=== PATIENT | female | born 1940 | race Caucasian/White ===

== ENCOUNTER 2017-08-19 17:40 | Inpatient (IN) | payer MEDICARE, OTHER ==
[2017-08-19 22:29] LABS: ADD MAN DIFF? NO
[2017-08-19 22:31] LABS: BASOPHIL # 0.1 10^3/ul (0.0-0.1); BASOPHILS % 0.9 % (0.0-2.0); EOSINOPHILS # 0.1 10^3/ul (0.0-0.5); EOSINOPHILS % 0.8 % (0.0-7.0); HEMATOCRIT 37.4 % (37.0-47.0); HEMOGLOBIN 11.9 g/dl (12.0-16.0); LYMPHOCYTES # 1.2 10^3/ul (0.8-2.9); LYMPHOCYTES % 15.2 % (15.0-51.0); MEAN CORPUSCULAR HGB CONC 31.8 g/dl (32.0-37.0); MEAN CORPUSCULAR VOLUME 81.8 fl (82.0-101.0); MEAN PLATELET VOLUME 12.8 fl (7.4-10.4); MONOCYTE # 0.6 10^3/ul (0.3-0.9); MONOCYTES % 7.2 % (0.0-11.0); NEUTROPHILS % 75.6 % (39.0-77.0); PLATELET COUNT 277 10^3/UL (140-415); RED BLOOD COUNT 4.57 10^6/ul (4.20-5.40); RED CELL DISTRIBUTION WIDTH 15.9 % (11.5-14.5)
[2017-08-19 22:31] LABS: WHITE BLOOD COUNT 7.9 10^3/ul (4.8-10.8)
[2017-08-19 22:52] LABS: ANION GAP 15 (8-16); BLOOD UREA NITROGEN 43 mg/dl (7-20); CALCIUM 8.8 mg/dl (8.4-10.2); CARBON DIOXIDE 34 mmol/L (21-31); CHLORIDE 93 mmol/L (97-110); CREATININE 1.61 mg/dl (0.44-1.00); GLUCOSE 53 mg/dl (70-220); POTASSIUM 4.6 mmol/L (3.5-5.1); SODIUM 137 mmol/L (135-144)
[2017-08-19 23:03] LABS: TROPONIN-I 0.032 ng/ml (0.00-0.12)
[2017-08-19 23:16] LABS: B-TYPE NATRIURETIC PEPTIDE 56300 PG/ML (0-450)
[2017-08-19] MEDS: FUROSEMIDE 40 MG INJ IV (23:39)
[2017-08-20] MEDS ORDERED: ONDANSETRON 4 MG INJ IV
[2017-08-20] MEDS ORDERED: ACETAMINOPHEN 325 MG TAB PO
[2017-08-20] MEDS: CEFTRIAXONE 1 GM/50 ML (PMX) 50 ML IVPB (00:33)
[2017-08-20] MEDS: METHYLPREDNISOLONE 125 MG INJ IV (00:33)
[2017-08-20] MEDS: AZITHROMYCIN 500MG/250 ML IVPB IV (01:31)
[2017-08-20] MEDS: ALBUTEROL 0.5% (NEB) 2.5 MG/0.5 ML AMP INH (01:56)
[2017-08-20] MEDS: IPRATROPIUM (NEB) 0.5 MG/2.5 ML AMP INH (01:56)
[2017-08-20] MEDS ORDERED: NACL 0.9% 3 ML SYG IV (14:30)
[2017-08-20] MEDS ORDERED: AZITHROMYCIN 250 MG in SOD CHLORIDE 0.9% 250 ML IVPB (14:30)
[2017-08-20] MEDS: FUROSEMIDE 40 MG INJ IV ×2 (15:15→23:00)
[2017-08-20] MEDS: HYDROCODONE/APAP (5/325) TAB PO (19:31)
[2017-08-20] MEDS: ATORVASTATIN 10 MG TAB PO (21:00)
[2017-08-20] MEDS: HEPARIN 5,000 UNIT/0.5 ML VIAL SC (23:00)
[2017-08-20] MEDS: AZITHROMYCIN 500MG/NS (PMX) 250 ML IV (23:00)
[2017-08-21 00:58] LABS: CREATINE KINASE 61 IU/L (23-200)
[2017-08-21 01:10] LABS: CK INDEX 3.4; CK-MB 2.06 ng/ml (0.0-2.4)
[2017-08-21 01:17] LABS: TROPONIN-I 0.496 ng/ml (0.00-0.12)
[2017-08-21 05:50] LABS: ADD MAN DIFF? NO
[2017-08-21 05:57] LABS: BASOPHILS % 0.4 % (0.0-2.0); EOSINOPHILS % 0.2 % (0.0-7.0); HEMATOCRIT 32.3 % (37.0-47.0); HEMOGLOBIN 10.2 g/dl (12.0-16.0); LYMPHOCYTES # 0.7 10^3/ul (0.8-2.9); LYMPHOCYTES % 11.8 % (15.0-51.0); MEAN CORPUSCULAR HEMOGLOBIN 25.6 pg (29.0-33.0); MEAN CORPUSCULAR HGB CONC 31.6 g/dl (32.0-37.0); MEAN PLATELET VOLUME 12.7 fl (7.4-10.4); MONOCYTE # 0.8 10^3/ul (0.3-0.9); MONOCYTES % 14.3 % (0.0-11.0); NEUTROPHILS % 73.1 % (39.0-77.0); PLATELET COUNT 233 10^3/UL (140-415); RED BLOOD COUNT 3.99 10^6/ul (4.20-5.40)
[2017-08-21 05:57] LABS: WHITE BLOOD COUNT 5.5 10^3/ul (4.8-10.8)
[2017-08-21] MEDS: HEPARIN 5,000 UNIT/0.5 ML VIAL SC ×2 (06:12→15:47)
[2017-08-21] MEDS: FUROSEMIDE 40 MG INJ IV ×2 (06:13→15:41)
[2017-08-21 06:22] LABS: ANION GAP 15 (8-16); BLOOD UREA NITROGEN 50 mg/dl (7-20); CALCIUM 8.8 mg/dl (8.4-10.2); CARBON DIOXIDE 31 mmol/L (21-31); CHLORIDE 95 mmol/L (97-110); CREATININE 1.79 mg/dl (0.44-1.00); GLUCOSE 185 mg/dl (70-220); PHOSPHORUS 5.3 mg/dl (2.5-4.9); POTASSIUM 5.1 mmol/L (3.5-5.1); SODIUM 136 mmol/L (135-144)
[2017-08-21 06:45] LABS: CHOL/HDL RATIO 3.4 RATIO; HDL CHOLESTEROL 35 mg/dl (33-92); LDL CHOLESTEROL,CALCULATED 67 mg/dl; TRIGLYCERIDES 87 mg/dl (0-149)
[2017-08-21 06:45] LABS: CHOLESTEROL 119 mg/dl (100-200)
[2017-08-21 07:05] LABS: CREATINE KINASE 61 IU/L (23-200)
[2017-08-21 07:18] LABS: CK INDEX 3.5; CK-MB 2.12 ng/ml (0.0-2.4)
[2017-08-21 07:24] LABS: TROPONIN-I 0.423 ng/ml (0.00-0.12)
[2017-08-21] MEDS: AMLODIPINE 2.5 MG TAB PO (09:00)
[2017-08-21] MEDS: LOSARTAN 50 MG TAB PO (09:00)
[2017-08-21] MEDS: CEFTRIAXONE 1 GM/50 ML (PMX) 50 ML IVPB (09:27)
[2017-08-21] MEDS: ISOSORBIDE MONONITRATE(SR)30 MG TAB PO (09:29)
[2017-08-21 13:20] LABS: CREATINE KINASE 55 IU/L (23-200)
[2017-08-21 13:31] LABS: CK INDEX 3.7; CK-MB 2.02 ng/ml (0.0-2.4)
[2017-08-21 13:33] LABS: TROPONIN-I 0.284 ng/ml (0.00-0.12)
[2017-08-21] MEDS: HYDROCODONE/APAP (5/325) TAB PO (20:16)
[2017-08-22] MEDS: HEPARIN 5,000 UNIT/0.5 ML VIAL SC ×4 (00:01→22:33)
[2017-08-22] MEDS: FUROSEMIDE 40 MG INJ IV ×2 (06:02)
[2017-08-22] MEDS: ISOSORBIDE MONONITRATE(SR)30 MG TAB PO (08:38)
[2017-08-22] MEDS: ACETAMINOPHEN 325 MG TAB PO (08:38)
[2017-08-22] MEDS: LOSARTAN 50 MG TAB PO (08:38)
[2017-08-22 09:19] LABS: ADD MAN DIFF? NO
[2017-08-22 09:27] LABS: WHITE BLOOD COUNT 7.3 10^3/ul (4.8-10.8)
[2017-08-22 09:27] LABS: BASOPHILS % 0.6 % (0.0-2.0); EOSINOPHILS # 0.1 10^3/ul (0.0-0.5); EOSINOPHILS % 1.7 % (0.0-7.0); HEMATOCRIT 32.9 % (37.0-47.0); HEMOGLOBIN 10.4 g/dl (12.0-16.0); LYMPHOCYTES # 0.9 10^3/ul (0.8-2.9); LYMPHOCYTES % 12.4 % (15.0-51.0); MEAN CORPUSCULAR HEMOGLOBIN 25.9 pg (29.0-33.0); MEAN CORPUSCULAR HGB CONC 31.6 g/dl (32.0-37.0); MEAN PLATELET VOLUME 12.5 fl (7.4-10.4); MONOCYTE # 0.6 10^3/ul (0.3-0.9); MONOCYTES % 8.8 % (0.0-11.0); NEUTROPHIL # 5.5 10^3/ul (1.6-7.5); NEUTROPHILS % 76.2 % (39.0-77.0); PLATELET COUNT 196 10^3/UL (140-415); RED BLOOD COUNT 4.01 10^6/ul (4.20-5.40); RED CELL DISTRIBUTION WIDTH 15.9 % (11.5-14.5)
[2017-08-22 09:45] LABS: CREATINE KINASE 55 IU/L (23-200)
[2017-08-22 09:46] LABS: ANION GAP 15 (8-16); BLOOD UREA NITROGEN 51 mg/dl (7-20); CALCIUM 8.6 mg/dl (8.4-10.2); CARBON DIOXIDE 33 mmol/L (21-31); CHLORIDE 95 mmol/L (97-110); CREATININE 1.71 mg/dl (0.44-1.00); GLUCOSE 141 mg/dl (70-220); PHOSPHORUS 3.9 mg/dl (2.5-4.9); POTASSIUM 3.9 mmol/L (3.5-5.1); SODIUM 139 mmol/L (135-144)
[2017-08-22] MEDS: CEFTRIAXONE 1 GM/50 ML (PMX) 50 ML IVPB (09:49)
[2017-08-22 09:57] LABS: CK INDEX 2.7; TROPONIN-I 0.168 ng/ml (0.00-0.12)
[2017-08-22] MEDS ORDERED: DEXTROSE 50% 50 ML SYRINGE IV ×2 (13:30)
[2017-08-22] MEDS ORDERED: GLUCOSE GEL 15 GRAM TUBE BUCCAL (13:30)
[2017-08-22] MEDS ORDERED: GLUCAGON 1 MG INJ IM (13:30)
[2017-08-22] MEDS ORDERED: GLUCOSE GEL 15 GRAM TUBE PO ×2 (13:30)
[2017-08-22] MEDS: BUMETANIDE 1 MG INJ IV ×2 (14:25→17:32)
[2017-08-22] MEDS: LINAGLIPTIN 5 MG TABLET PO (14:51)
[2017-08-22] MEDS: INSULIN ASPART [NOVOLOG] 3 ML PEN SC ×3 (17:32→20:24)
[2017-08-22] MEDS ORDERED: BUMETANIDE 1 MG INJ IV (18:00)
[2017-08-22] MEDS: INSULIN GLARGINE [LANtus] 3 ML PEN SC (20:27)
[2017-08-22] MEDS: ATORVASTATIN 10 MG TAB PO ×2 (20:29)
[2017-08-22 20:48] LABS: HEMOGLOBIN A1C 7.1 % (0-5.9)
[2017-08-23] MEDS: ACCU-CHEK XX ×2 (02:00→20:54)
[2017-08-23] MEDS: BUMETANIDE 1 MG INJ IV ×2 (05:27→17:08)
[2017-08-23] MEDS: HEPARIN 5,000 UNIT/0.5 ML VIAL SC ×3 (05:28→21:04)
[2017-08-23] MEDS: INSULIN ASPART [NOVOLOG] 3 ML PEN SC ×7 (08:00→20:37)
[2017-08-23] MEDS: LOSARTAN 50 MG TAB PO ×2 (08:30→20:36)
[2017-08-23] MEDS: LINAGLIPTIN 5 MG TABLET PO (08:30)
[2017-08-23] MEDS: ISOSORBIDE MONONITRATE(SR)30 MG TAB PO (08:30)
[2017-08-23 08:56] LABS: ADD MAN DIFF? NO
[2017-08-23 09:00] LABS: WHITE BLOOD COUNT 6.6 10^3/ul (4.8-10.8)
[2017-08-23 09:00] LABS: BASOPHILS % 0.6 % (0.0-2.0); EOSINOPHILS # 0.2 10^3/ul (0.0-0.5); EOSINOPHILS % 3.2 % (0.0-7.0); HEMATOCRIT 33.3 % (37.0-47.0); HEMOGLOBIN 10.4 g/dl (12.0-16.0); LYMPHOCYTES # 0.9 10^3/ul (0.8-2.9); MEAN CORPUSCULAR HEMOGLOBIN 25.4 pg (29.0-33.0); MEAN CORPUSCULAR HGB CONC 31.2 g/dl (32.0-37.0); MEAN CORPUSCULAR VOLUME 81.4 fl (82.0-101.0); MEAN PLATELET VOLUME 12.2 fl (7.4-10.4); MONOCYTE # 0.5 10^3/ul (0.3-0.9); MONOCYTES % 7.5 % (0.0-11.0); NEUTROPHIL # 4.9 10^3/ul (1.6-7.5); NEUTROPHILS % 74.5 % (39.0-77.0); PLATELET COUNT 202 10^3/UL (140-415); RED BLOOD COUNT 4.09 10^6/ul (4.20-5.40)
[2017-08-23 09:43] LABS: PHOSPHORUS 3.7 mg/dl (2.5-4.9)
[2017-08-23 09:57] LABS: ALANINE AMINOTRANSFERASE 26 IU/L (13-69); ALBUMIN 3.1 g/dl (3.3-4.9); ALKALINE PHOSPHATASE 84 IU/L (42-121); ANION GAP 13 (8-16); ASPARTATE AMINO TRANSFERASE 22 IU/L (15-46); BILIRUBIN,INDIRECT 0.3 mg/dl (0-1.1); BILIRUBIN,TOTAL 0.3 mg/dl (0.2-1.3); BLOOD UREA NITROGEN 46 mg/dl (7-20); CALCIUM 8.3 mg/dl (8.4-10.2); CARBON DIOXIDE 36 mmol/L (21-31); CHLORIDE 96 mmol/L (97-110); CREATININE 1.67 mg/dl (0.44-1.00); GLUCOSE 92 mg/dl (70-220); POTASSIUM 3.9 mmol/L (3.5-5.1); SODIUM 141 mmol/L (135-144); TOTAL PROTEIN 6.2 g/dl (6.1-8.1)
[2017-08-23 18:11] LABS: AADO2 Arterial 67.3 mmHg (7.0-24.0); Allen Test ACCEPTAB; Arterial Base Excess 10.7 mmol/L (-3.0-3); Arterial Blood Gas Oxygen Sat 87.1 mmHG (95.0-100.0); Arterial COHb 0.2 % (0.0-3.0); Arterial Fraction of Oxyhgb 86.7 % (93.0-99.0); Arterial HCO3 37.2 mmol/L (22.0-26.0); Arterial MetHb 0.3 % (0.0-1.5); Arterial Total Hemglobin 11.4 g/dl (12.0-18.0); Arterial pCO2 59.6 mmhg (35-45); MODE NASAL CANNULA; Site Left Radial
[2017-08-23] MEDS: ACETAZOLAMIDE 250 MG TAB PO (20:35)
[2017-08-23] MEDS: DOCUSATE SODIUM 100 MG CAP PO (20:35)
[2017-08-23] MEDS: ATORVASTATIN 10 MG TAB PO (20:35)
[2017-08-23] MEDS: ONDANSETRON 4 MG INJ IV (20:38)
[2017-08-23] MEDS: INSULIN GLARGINE [LANtus] 3 ML PEN SC (20:44)
[2017-08-23 23:15] LABS: ADD UMIC YES; UR ASCORBIC ACID NEGATIVE (NEGATIVE); UR BILIRUBIN (Dip) NEGATIVE (NEGATIVE); UR BLOOD (Dip) NEGATIVE (NEGATIVE); UR CLARITY CLEAR (CLEAR); UR COLOR STRAW (YELLOW); UR GLUCOSE (Dip) NEGATIVE (NEGATIVE); UR KETONES (Dip) NEGATIVE (NEGATIVE); UR LEUKOCYTE ESTERASE (Dip) 2+ Leu/ul (NEGATIVE); UR NITRITE (Dip) NEGATIVE (NEGATIVE); UR RBC 3 /HPF (0-5); UR SPECIFIC GRAVITY (Dip) 1.006 (1.003-1.030); UR SQUAMOUS EPITHELIAL CELL FEW /HPF (FEW); UR TOTAL PROTEIN (Dip) NEGATIVE (NEGATIVE); UR UROBILINOGEN (Dip) NEGATIVE (NEGATIVE); UR WBC 9 /HPF (0-5)
[2017-08-24] MEDS: BUMETANIDE 1 MG INJ IV ×2 (06:33→17:44)
[2017-08-24] MEDS: HEPARIN 5,000 UNIT/0.5 ML VIAL SC (06:40)
[2017-08-24] MEDS: LOSARTAN 50 MG TAB PO ×2 (07:01→20:43)
[2017-08-24] MEDS: INSULIN ASPART [NOVOLOG] 3 ML PEN SC ×7 (08:00→20:44)
[2017-08-24] MEDS: ACETAZOLAMIDE 250 MG TAB PO ×2 (08:03→20:28)
[2017-08-24] MEDS: LINAGLIPTIN 5 MG TABLET PO (08:03)
[2017-08-24] MEDS: ISOSORBIDE MONONITRATE(SR)30 MG TAB PO (08:04)
[2017-08-24] MEDS: HYDROCODONE/APAP (5/325) TAB PO (08:05)
[2017-08-24 08:45] LABS: ADD MAN DIFF? NO
[2017-08-24 08:49] LABS: WHITE BLOOD COUNT 6.3 10^3/ul (4.8-10.8)
[2017-08-24 08:49] LABS: BASOPHIL # 0.1 10^3/ul (0.0-0.1); BASOPHILS % 1.1 % (0.0-2.0); EOSINOPHILS # 0.2 10^3/ul (0.0-0.5); EOSINOPHILS % 2.5 % (0.0-7.0); HEMOGLOBIN 10.5 g/dl (12.0-16.0); LYMPHOCYTES # 1.1 10^3/ul (0.8-2.9); MEAN CORPUSCULAR HEMOGLOBIN 25.5 pg (29.0-33.0); MEAN CORPUSCULAR HGB CONC 30.9 g/dl (32.0-37.0); MEAN CORPUSCULAR VOLUME 82.5 fl (82.0-101.0); MEAN PLATELET VOLUME 12.7 fl (7.4-10.4); MONOCYTE # 0.5 10^3/ul (0.3-0.9); MONOCYTES % 8.1 % (0.0-11.0); NEUTROPHIL # 4.5 10^3/ul (1.6-7.5); PLATELET COUNT 141 10^3/UL (140-415); RED BLOOD COUNT 4.12 10^6/ul (4.20-5.40); RED CELL DISTRIBUTION WIDTH 16.3 % (11.5-14.5)
[2017-08-24 09:20] LABS: ANION GAP 14 (8-16); BLOOD UREA NITROGEN 41 mg/dl (7-20); CALCIUM 8.4 mg/dl (8.4-10.2); CARBON DIOXIDE 34 mmol/L (21-31); CHLORIDE 98 mmol/L (97-110); GLUCOSE 67 mg/dl (70-220); POTASSIUM 3.9 mmol/L (3.5-5.1); SODIUM 142 mmol/L (135-144)
[2017-08-24 09:22] LABS: PHOSPHORUS 3.5 mg/dl (2.5-4.9)
[2017-08-24 09:22] LABS: MAGNESIUM 1.9 mg/dl (1.7-2.5)
[2017-08-24 11:05] LABS: INR 1.16; PT RATIO 1.2
[2017-08-24 11:06] LABS: PARTIAL THROMBOPLASTIN TIME 47.6 Sec (25.0-35.0)
[2017-08-24] MEDS: hydrALAzine 20 MG INJ IV (16:13)
[2017-08-24] MEDS: ATORVASTATIN 10 MG TAB PO (20:28)
[2017-08-24] MEDS: INSULIN GLARGINE [LANtus] 3 ML PEN SC (20:37)
[2017-08-24] MEDS: ACCU-CHEK XX (20:44)
[2017-08-25] MEDS: BUMETANIDE 1 MG INJ IV ×2 (06:54→12:11)
[2017-08-25 07:38] LABS: ADD MAN DIFF? NO
[2017-08-25 07:56] LABS: ABNORMAL IP MESSAGE 1; BASOPHIL # 0.1 10^3/ul (0.0-0.1); BASOPHILS % 0.8 % (0.0-2.0); EOSINOPHILS # 0.2 10^3/ul (0.0-0.5); EOSINOPHILS % 2.6 % (0.0-7.0); HEMATOCRIT 32.5 % (37.0-47.0); HEMOGLOBIN 10.2 g/dl (12.0-16.0); LYMPHOCYTES # 0.8 10^3/ul (0.8-2.9); LYMPHOCYTES % 13.5 % (15.0-51.0); MEAN CORPUSCULAR HEMOGLOBIN 25.9 pg (29.0-33.0); MEAN CORPUSCULAR HGB CONC 31.4 g/dl (32.0-37.0); MEAN CORPUSCULAR VOLUME 82.5 fl (82.0-101.0); MEAN PLATELET VOLUME 13.3 fl (7.4-10.4); MONOCYTE # 0.5 10^3/ul (0.3-0.9); MONOCYTES % 8.5 % (0.0-11.0); NEUTROPHIL # 4.6 10^3/ul (1.6-7.5); NEUTROPHILS % 74.3 % (39.0-77.0); PLATELET COUNT 216 10^3/UL (140-415); RED BLOOD COUNT 3.94 10^6/ul (4.20-5.40); RED CELL DISTRIBUTION WIDTH 16.2 % (11.5-14.5)
[2017-08-25 07:56] LABS: WHITE BLOOD COUNT 6.2 10^3/ul (4.8-10.8)
[2017-08-25 07:57] LABS: PHOSPHORUS 3.8 mg/dl (2.5-4.9)
[2017-08-25 07:57] LABS: MAGNESIUM 1.9 mg/dl (1.7-2.5)
[2017-08-25 07:58] LABS: POSITIVE DIFF @See below
[2017-08-25 07:59] LABS: ANION GAP 16 (8-16); BLOOD UREA NITROGEN 37 mg/dl (7-20); CALCIUM 8.4 mg/dl (8.4-10.2); CARBON DIOXIDE 35 mmol/L (21-31); CHLORIDE 98 mmol/L (97-110); CREATININE 1.81 mg/dl (0.44-1.00); GLUCOSE 75 mg/dl (70-220); POTASSIUM 3.5 mmol/L (3.5-5.1); SODIUM 145 mmol/L (135-144)
[2017-08-25] MEDS: INSULIN ASPART [NOVOLOG] 3 ML PEN SC ×4 (08:00→12:14)
[2017-08-25] MEDS: LINAGLIPTIN 5 MG TABLET PO (08:45)
[2017-08-25] MEDS: ISOSORBIDE MONONITRATE(SR)30 MG TAB PO (08:45)
[2017-08-25] MEDS: LOSARTAN 50 MG TAB PO (08:45)
[2017-08-25] MEDS: ACETAZOLAMIDE 250 MG TAB PO (08:45)
[2017-08-25] MEDS: LIDOCAINE 1% (MPF) 5 ML VIAL (10:23)
[2017-08-25] MEDS ORDERED: L ACIDOPHIL/B LACTIS/B LONGUM CAPSULE PO (16:30)
== END 2017-08-25 17:15 | disposition home health service (06) | DRG 291 ==
LOC: E/R 17:40 → MS4 23:47
PROC: 4A033R1 Measurement of Arterial Saturation, Peripheral, Percutaneous Approach (ICD-10-PCS; 2017-08-23)
PROC: 0W9B3ZZ Drainage of Left Pleural Cavity, Percutaneous Approach (ICD-10-PCS; principal; 2017-08-25)
DX: I13.0 Hypertensive heart and chronic kidney disease with heart failure and stage 1 through stage 4 chronic kidney disease, or unspecified chronic kidney disease (principal); I50.23 Acute on chronic systolic (congestive) heart failure; J18.9 Pneumonia, unspecified organism; E87.3 Alkalosis; E87.0 Hyperosmolality and hypernatremia; N18.3 Chronic kidney disease, stage 3 (moderate); F03.90 Unspecified dementia, unspecified severity, without behavioral disturbance, psychotic disturbance, mood disturbance, and anxiety; E11.22 Type 2 diabetes mellitus with diabetic chronic kidney disease; I25.5 Ischemic cardiomyopathy; J06.9 Acute upper respiratory infection, unspecified; I44.7 Left bundle-branch block, unspecified; D64.9 Anemia, unspecified; E78.00 Pure hypercholesterolemia, unspecified; E11.40 Type 2 diabetes mellitus with diabetic neuropathy, unspecified; Z95.1 Presence of aortocoronary bypass graft; Z79.4 Long term (current) use of insulin; Z82.49 Family history of ischemic heart disease and other diseases of the circulatory system; Z95.810 Presence of automatic (implantable) cardiac defibrillator
CPT/HCPCS: 36415; 36600; 71045; 76942; 80048; 80053; 80061; 81001; 82550; 82553; 82803; 82962; 83036; 83735; 83880; 84100; 84484; 85025; 85610; 85730; 93005; 93306; 96372; 96374; 96375; 96376; 97162; 99285-25

== ENCOUNTER 2017-12-02 16:42 | Inpatient (IN) | payer MEDICARE, OTHER ==
[2017-12-02] MEDS ORDERED: DEXTROSE 50% 50 ML SYRINGE (16:53)
[2017-12-02 17:25] LABS: ADD MAN DIFF? NO
[2017-12-02 17:28] LABS: WHITE BLOOD COUNT 13.6 10^3/ul (4.8-10.8)
[2017-12-02 17:28] LABS: BASOPHILS % 0.3 % (0.0-2.0); EOSINOPHILS # 0.1 10^3/ul (0.0-0.5); EOSINOPHILS % 0.4 % (0.0-7.0); HEMATOCRIT 31.9 % (37.0-47.0); LYMPHOCYTES # 0.7 10^3/ul (0.8-2.9); LYMPHOCYTES % 5.2 % (15.0-51.0); MEAN CORPUSCULAR HEMOGLOBIN 28.2 pg (29.0-33.0); MEAN CORPUSCULAR HGB CONC 31.3 g/dl (32.0-37.0); MEAN CORPUSCULAR VOLUME 90.1 fl (82.0-101.0); MEAN PLATELET VOLUME 12.6 fl (7.4-10.4); MONOCYTE # 0.6 10^3/ul (0.3-0.9); MONOCYTES % 4.6 % (0.0-11.0); NEUTROPHIL # 12.1 10^3/ul (1.6-7.5); NEUTROPHILS % 89.1 % (39.0-77.0); PLATELET COUNT 206 10^3/UL (140-415); RED BLOOD COUNT 3.54 10^6/ul (4.20-5.40); RED CELL DISTRIBUTION WIDTH 18.4 % (11.5-14.5)
[2017-12-02] MEDS ORDERED: LORAZEPAM 2 MG INJ (17:33)
[2017-12-02 17:44] LABS: INR 1.04; PROTIME 13.7 Sec (11.9-14.9); PT RATIO 1.1
[2017-12-02] MEDS: DEXTROSE 50% 50 ML SYRINGE IV ×2 (17:45→19:13)
[2017-12-02] MEDS: LORAZEPAM 2 MG INJ IV (17:45)
[2017-12-02 17:47] LABS: ALANINE AMINOTRANSFERASE 23 IU/L (13-69); ALBUMIN 3.3 g/dl (3.3-4.9); ALBUMIN/GLOBULIN RATIO 0.89; ALKALINE PHOSPHATASE 98 IU/L (42-121); ANION GAP 11 (8-16); ASPARTATE AMINO TRANSFERASE 24 IU/L (15-46); BILIRUBIN,INDIRECT 0.5 mg/dl (0-1.1); BILIRUBIN,TOTAL 0.5 mg/dl (0.2-1.3); BLOOD UREA NITROGEN 61 mg/dl (7-20); CALCIUM 8.7 mg/dl (8.4-10.2); CARBON DIOXIDE 33 mmol/L (21-31); CHLORIDE 102 mmol/L (97-110); GLUCOSE 150 mg/dl (70-220); POTASSIUM 3.8 mmol/L (3.5-5.1); SODIUM 142 mmol/L (135-144)
[2017-12-02 17:52] LABS: ACETAMINOPHEN < 10.0 ug/ml (10.0-30.0); ETHANOL < 10.0 mg/dl; SALICYLATE < 1.0 mg/dl (5.0-30.0)
[2017-12-02 18:00] LABS: TROPONIN-I < 0.012 ng/ml (0.000-0.120)
[2017-12-02] MEDS: LEVETIRACETAM 1500 MG (PMX) 100 ML IVPB (18:00)
[2017-12-02] MEDS: ETOMIDATE 20 MG INJ IV (18:26)
[2017-12-02] MEDS: PROPOFOL 100 ML IV ×2 (18:26→23:57)
[2017-12-02] MEDS: IOHEXOL 100 ML (18:42)
[2017-12-02] MEDS: CEFEPIME 2GM/50 ML (PMX) 50 ML IVPB (18:43)
[2017-12-02] MEDS: VANCOMYCIN 1 GM (PMX) 250 ML IVPB (19:00)
[2017-12-02 19:09] LABS: ADD UMIC NO; UR ASCORBIC ACID NEGATIVE (NEGATIVE); UR BILIRUBIN (Dip) NEGATIVE (NEGATIVE); UR BLOOD (Dip) NEGATIVE (NEGATIVE); UR CLARITY CLEAR (CLEAR); UR COLOR STRAW (YELLOW); UR GLUCOSE (Dip) NEGATIVE (NEGATIVE); UR KETONES (Dip) NEGATIVE (NEGATIVE); UR LEUKOCYTE ESTERASE (Dip) NEGATIVE Leu/ul (NEGATIVE); UR NITRITE (Dip) NEGATIVE (NEGATIVE); UR SPECIFIC GRAVITY (Dip) 1.006 (1.003-1.030); UR TOTAL PROTEIN (Dip) NEGATIVE (NEGATIVE); UR UROBILINOGEN (Dip) NEGATIVE (NEGATIVE)
[2017-12-02 19:22] LABS: AMPHETAMINE/METHAMPHETAMINE Negative (NEGATIVE); BARBITURATES Negative (NEGATIVE); BENZODIAZEPINES Negative (NEGATIVE); CANNABINOIDS Negative (NEGATIVE); COCAINE Negative (NEGATIVE); OPIATES Negative (NEGATIVE)
[2017-12-02] MEDS: SOD CHLORIDE 0.9% 100 ML (20:15)
[2017-12-02 20:33] LABS: LACTIC ACID 1.8 mmol/L (0.5-2.0)
[2017-12-02] MEDS ORDERED: SOD CHLORIDE 0.9% 1,000 ML IV (21:10)
[2017-12-02] MEDS ORDERED: ONDANSETRON 4 MG INJ IV (21:30)
[2017-12-02] MEDS ORDERED: ACETAMINOPHEN 650MG/20.3ML CUP PO (21:30)
[2017-12-02] MEDS ORDERED: ALBUTEROL HFA 8 GM INHALER INH (21:30)
[2017-12-02] MEDS ORDERED: LORAZEPAM 2 MG INJ IV (21:30)
[2017-12-02] MEDS ORDERED: MIDAZOLAM (DRIP) 50 mg/50 mL 50 ML IV (21:30)
[2017-12-02] MEDS ORDERED: NITROGLYCERIN (SL) 0.4 MG TAB SL (21:30)
[2017-12-02] MEDS ORDERED: BISACODYL 10 MG SUPP PR (21:30)
[2017-12-02] MEDS: ATORVASTATIN 10 MG TAB PO (21:30)
[2017-12-02] MEDS ORDERED: MAGNESIUM HYDROXIDE 30ML CUP PO (21:30)
[2017-12-02] MEDS ORDERED: IPRATROPIUM (HFA) 12.9 GM INHALER INH (21:30)
[2017-12-02 22:28] LABS: LACTIC ACID 1.4 mmol/L (0.5-2.0)
[2017-12-02 22:46] LABS: FREE T4 (FREE THYROXINE) 2.17 ng/dl (0.78-2.44)
[2017-12-02 22:59] LABS: THYROID STIMULATING HORMONE 0.887 MIU/L (0.465-4.680)
[2017-12-02 23:34] LABS: AADO2 Arterial 100.3 mmHg (7.0-24.0); Arterial Base Excess 5.5 mmol/L (-3.0-3); Arterial Blood Gas Oxygen Sat 99.7 mmHG (95.0-100.0); Arterial COHb 0.3 % (0.0-3.0); Arterial Fraction of Oxyhgb 99.1 % (93.0-99.0); Arterial HCO3 28.9 mmol/L (22.0-26.0); Arterial MetHb 0.3 % (0.0-1.5); Arterial Total Hemglobin 11.5 g/dl (12.0-18.0); Arterial pCO2 37.6 mmhg (35-45); MODE VENT - AC; Site Right Brachial
[2017-12-02] MEDS: DEXTROSE 5%-0.9% NACL 1,000 ML IV (23:45)
[2017-12-03 00:27] LABS: LACTIC ACID 1.5 mmol/L (0.5-2.0)
[2017-12-03] MEDS: PIPER-TAZO 2.25 GM (PMX) 50 ML IVPB ×4 (00:50→22:13)
[2017-12-03] MEDS ORDERED: GLUCOSE GEL 15 GRAM TUBE BUCCAL (01:00)
[2017-12-03] MEDS ORDERED: GLUCOSE GEL 15 GRAM TUBE PO ×2 (01:00)
[2017-12-03] MEDS: INSULIN ASPART [NOVOLOG] 3 ML PEN SC ×6 (01:00→21:17)
[2017-12-03] MEDS ORDERED: GLUCAGON 1 MG INJ IM (01:00)
[2017-12-03] MEDS ORDERED: DEXTROSE 50% 50 ML SYRINGE IV ×2 (01:00)
[2017-12-03] MEDS: ACCU-CHEK XX ×6 (01:05→08:51)
[2017-12-03] MEDS: PROPOFOL 100 ML IV ×4 (01:50→21:48)
[2017-12-03 05:12] LABS: ADD MAN DIFF? NO
[2017-12-03 05:14] LABS: BASOPHILS % 0.3 % (0.0-2.0); EOSINOPHILS % 0.1 % (0.0-7.0); HEMATOCRIT 31.2 % (37.0-47.0); HEMOGLOBIN 9.8 g/dl (12.0-16.0); LYMPHOCYTES % 9.1 % (15.0-51.0); MEAN CORPUSCULAR HEMOGLOBIN 27.6 pg (29.0-33.0); MEAN CORPUSCULAR HGB CONC 31.4 g/dl (32.0-37.0); MEAN CORPUSCULAR VOLUME 87.9 fl (82.0-101.0); MEAN PLATELET VOLUME 12.6 fl (7.4-10.4); MONOCYTE # 0.8 10^3/ul (0.3-0.9); MONOCYTES % 7.2 % (0.0-11.0); NEUTROPHIL # 9.2 10^3/ul (1.6-7.5); PLATELET COUNT 194 10^3/UL (140-415); RED BLOOD COUNT 3.55 10^6/ul (4.20-5.40); RED CELL DISTRIBUTION WIDTH 18.2 % (11.5-14.5)
[2017-12-03 05:37] LABS: ALANINE AMINOTRANSFERASE 21 IU/L (13-69); ALKALINE PHOSPHATASE 98 IU/L (42-121); ANION GAP 15 (8-16); ASPARTATE AMINO TRANSFERASE 24 IU/L (15-46); BILIRUBIN,INDIRECT 0.9 mg/dl (0-1.1); BILIRUBIN,TOTAL 0.9 mg/dl (0.2-1.3); BLOOD UREA NITROGEN 59 mg/dl (7-20); CALCIUM 8.5 mg/dl (8.4-10.2); CARBON DIOXIDE 28 mmol/L (21-31); CHLORIDE 103 mmol/L (97-110); CREATININE 1.88 mg/dl (0.44-1.00); GLUCOSE 86 mg/dl (70-220); POTASSIUM 3.5 mmol/L (3.5-5.1); SODIUM 142 mmol/L (135-144); TOTAL PROTEIN 6.3 g/dl (6.1-8.1)
[2017-12-03 05:39] LABS: PHOSPHORUS 4.2 mg/dl (2.5-4.9)
[2017-12-03 05:39] LABS: MAGNESIUM 1.9 mg/dl (1.7-2.5)
[2017-12-03 05:50] LABS: HEMOGLOBIN A1C 6.6 % (0-5.9)
[2017-12-03 08:34] LABS: Arterial Base Excess 7.1 mmol/L (-3.0-3); Arterial Blood Gas Oxygen Sat 98.5 mmHG (95.0-100.0); Arterial COHb 0.3 % (0.0-3.0); Arterial HCO3 30.1 mmol/L (22.0-26.0); Arterial MetHb 0.2 % (0.0-1.5); Arterial pCO2 36.9 mmhg (35-45); MODE VENT - AC; Site Right Brachial
[2017-12-03] MEDS: FAMOTIDINE 20 MG INJ IV (08:59)
[2017-12-03] MEDS: LEVETIRACETAM 1000 MG (PMX) 100 ML IVPB ×2 (08:59→21:13)
[2017-12-03] MEDS: HEPARIN 5,000 UNIT/0.5 ML VIAL SC ×2 (09:53→21:18)
[2017-12-03] MEDS: POTASSIUM CHLORIDE 20 MEQ POWDER FOR ORAL SOLN NGT (11:16)
[2017-12-03] MEDS: DEXTROSE 5%-0.9% NACL 1,000 ML IV (14:11)
[2017-12-03 18:26] LABS: TROPONIN-I 0.036 ng/ml (0.000-0.120)
[2017-12-03] MEDS: ATORVASTATIN 10 MG TAB PO (21:13)
[2017-12-04] MEDS: DEXTROSE 5%-0.9% NACL 1,000 ML IV ×3 (00:30→20:57)
[2017-12-04] MEDS: INSULIN ASPART [NOVOLOG] 3 ML PEN SC ×6 (01:00→20:51)
[2017-12-04] MEDS: ACCU-CHEK XX (01:22)
[2017-12-04 01:45] LABS: TROPONIN-I 0.041 ng/ml (0.000-0.120)
[2017-12-04] MEDS: PIPER-TAZO 2.25 GM (PMX) 50 ML IVPB ×3 (05:31→22:18)
[2017-12-04 05:42] LABS: ADD MAN DIFF? NO
[2017-12-04 05:47] LABS: WHITE BLOOD COUNT 12.1 10^3/ul (4.8-10.8)
[2017-12-04 05:47] LABS: BASOPHIL # 0.1 10^3/ul (0.0-0.1); BASOPHILS % 0.4 % (0.0-2.0); EOSINOPHILS % 0.3 % (0.0-7.0); HEMATOCRIT 31.7 % (37.0-47.0); HEMOGLOBIN 10.1 g/dl (12.0-16.0); LYMPHOCYTES % 8.5 % (15.0-51.0); MEAN CORPUSCULAR HEMOGLOBIN 28.1 pg (29.0-33.0); MEAN CORPUSCULAR HGB CONC 31.9 g/dl (32.0-37.0); MEAN CORPUSCULAR VOLUME 88.1 fl (82.0-101.0); MEAN PLATELET VOLUME 12.6 fl (7.4-10.4); MONOCYTES % 8.6 % (0.0-11.0); NEUTROPHIL # 9.9 10^3/ul (1.6-7.5); NEUTROPHILS % 81.8 % (39.0-77.0); PLATELET COUNT 180 10^3/UL (140-415); RED CELL DISTRIBUTION WIDTH 18.9 % (11.5-14.5)
[2017-12-04 06:16] LABS: ANION GAP 12 (8-16); BLOOD UREA NITROGEN 53 mg/dl (7-20); CARBON DIOXIDE 28 mmol/L (21-31); CHLORIDE 106 mmol/L (97-110); CREATININE 2.21 mg/dl (0.44-1.00); GLUCOSE 163 mg/dl (70-220); POTASSIUM 3.2 mmol/L (3.5-5.1); SODIUM 143 mmol/L (135-144)
[2017-12-04 06:20] LABS: CHOL/HDL RATIO 2.7 RATIO; HDL CHOLESTEROL 45 mg/dl (33-92); LDL CHOLESTEROL,CALCULATED 56 mg/dl; TRIGLYCERIDES 108 mg/dl (0-149)
[2017-12-04 06:20] LABS: CHOLESTEROL 123 mg/dl (100-200)
[2017-12-04 06:23] LABS: TROPONIN-I 0.044 ng/ml (0.000-0.120)
[2017-12-04 07:40] LABS: PHOSPHORUS 4.7 mg/dl (2.5-4.9)
[2017-12-04 07:40] LABS: MAGNESIUM 1.9 mg/dl (1.7-2.5)
[2017-12-04] MEDS: DOCUSATE SODIUM 100 MG CAP PO (08:17)
[2017-12-04] MEDS: FAMOTIDINE 20 MG INJ IV (08:17)
[2017-12-04] MEDS: POTASSIUM CHLORIDE 20 MEQ POWDER FOR ORAL SOLN NGT (08:17)
[2017-12-04] MEDS: ASPIRIN (EC) 81 MG TAB PO (08:18)
[2017-12-04] MEDS: LEVETIRACETAM 1000 MG (PMX) 100 ML IVPB ×2 (08:18→20:41)
[2017-12-04] MEDS: HEPARIN 5,000 UNIT/0.5 ML VIAL SC ×2 (08:30→20:44)
[2017-12-04] MEDS: FUROSEMIDE 20 MG INJ IV (12:05)
[2017-12-04] MEDS: ATORVASTATIN 10 MG TAB PO (20:41)
[2017-12-05] MEDS: INSULIN ASPART [NOVOLOG] 3 ML PEN SC ×6 (01:00→20:21)
[2017-12-05] MEDS: ACCU-CHEK XX (01:11)
[2017-12-05 05:21] LABS: ADD MAN DIFF? NO
[2017-12-05 05:32] LABS: WHITE BLOOD COUNT 12.5 10^3/ul (4.8-10.8)
[2017-12-05 05:32] LABS: ABNORMAL IP MESSAGE 1; BASOPHILS % 0.3 % (0.0-2.0); EOSINOPHILS % 0.2 % (0.0-7.0); HEMATOCRIT 30.3 % (37.0-47.0); HEMOGLOBIN 9.7 g/dl (12.0-16.0); LYMPHOCYTES # 0.9 10^3/ul (0.8-2.9); LYMPHOCYTES % 7.5 % (15.0-51.0); MEAN CORPUSCULAR HEMOGLOBIN 28.3 pg (29.0-33.0); MEAN CORPUSCULAR VOLUME 88.3 fl (82.0-101.0); MEAN PLATELET VOLUME 13.1 fl (7.4-10.4); MONOCYTE # 0.8 10^3/ul (0.3-0.9); MONOCYTES % 6.4 % (0.0-11.0); NEUTROPHIL # 10.7 10^3/ul (1.6-7.5); NEUTROPHILS % 85.3 % (39.0-77.0); PLATELET COUNT 169 10^3/UL (140-415); RED BLOOD COUNT 3.43 10^6/ul (4.20-5.40); RED CELL DISTRIBUTION WIDTH 18.6 % (11.5-14.5)
[2017-12-05 05:45] LABS: POSITIVE DIFF @See below
[2017-12-05 06:16] LABS: ANION GAP 13 (8-16); BLOOD UREA NITROGEN 46 mg/dl (7-20); CARBON DIOXIDE 31 mmol/L (21-31); CHLORIDE 104 mmol/L (97-110); CREATININE 2.47 mg/dl (0.44-1.00); GLUCOSE 148 mg/dl (70-220); MAGNESIUM 1.9 mg/dl (1.7-2.5); PHOSPHORUS 4.5 mg/dl (2.5-4.9); SODIUM 145 mmol/L (135-144)
[2017-12-05] MEDS: PIPER-TAZO 2.25 GM (PMX) 50 ML IVPB ×3 (06:17→23:11)
[2017-12-05 06:53] LABS: POTASSIUM 2.9 mmol/L (3.5-5.1)
[2017-12-05] MEDS: DEXTROSE 5%-0.9% NACL 1,000 ML IV (08:12)
[2017-12-05] MEDS: FUROSEMIDE 20 MG INJ IV (08:18)
[2017-12-05] MEDS: POTASSIUM CHLORIDE 20 MEQ POWDER FOR ORAL SOLN NGT ×2 (08:18→09:40)
[2017-12-05] MEDS: FAMOTIDINE 20 MG INJ IV (08:22)
[2017-12-05] MEDS: ASPIRIN (EC) 81 MG TAB PO (08:23)
[2017-12-05] MEDS: HEPARIN 5,000 UNIT/0.5 ML VIAL SC ×2 (08:26→20:15)
[2017-12-05 08:30] LABS: AADO2 Arterial 58.5 mmHg (7.0-24.0); Allen Test ACCEPTAB; Arterial Base Excess 3.6 mmol/L (-3.0-3); Arterial Blood Gas Oxygen Sat 98.1 mmHG (95.0-100.0); Arterial COHb 0.4 % (0.0-3.0); Arterial Fraction of Oxyhgb 97.5 % (93.0-99.0); Arterial HCO3 27.4 mmol/L (22.0-26.0); Arterial MetHb 0.2 % (0.0-1.5); Arterial Total Hemglobin 11.3 g/dl (12.0-18.0); Arterial pCO2 38.4 mmhg (35-45); MODE VENT - AC; Site Right Radial
[2017-12-05] MEDS: LEVETIRACETAM 1000 MG (PMX) 100 ML IVPB ×2 (08:33→20:12)
[2017-12-05] MEDS: ACETAMINOPHEN 325 MG TAB PO (10:05)
[2017-12-05] MEDS: ISOSORBIDE DINITRATE 20 MG TAB PO ×2 (12:38→20:13)
[2017-12-05] MEDS: ATORVASTATIN 10 MG TAB PO (20:12)
[2017-12-05 22:41] LABS: SODIUM,URINE RANDOM 65 mmol/L (30-90)
[2017-12-05 22:45] LABS: CREATININE,URINE RANDOM 69.83 mg/dl (20-320); PROTEIN/CREAT RATIO 0.55 RATIO
[2017-12-06] MEDS: INSULIN ASPART [NOVOLOG] 3 ML PEN SC ×6 (01:10→21:00)
[2017-12-06] MEDS: ACCU-CHEK XX (02:53)
[2017-12-06] MEDS: PIPER-TAZO 2.25 GM (PMX) 50 ML IVPB ×3 (05:15→21:50)
[2017-12-06 05:28] LABS: ADD MAN DIFF? NO
[2017-12-06 05:37] LABS: WHITE BLOOD COUNT 10.6 10^3/ul (4.8-10.8)
[2017-12-06 05:37] LABS: BASOPHILS % 0.3 % (0.0-2.0); EOSINOPHILS # 0.2 10^3/ul (0.0-0.5); EOSINOPHILS % 1.5 % (0.0-7.0); HEMATOCRIT 29.2 % (37.0-47.0); HEMOGLOBIN 9.3 g/dl (12.0-16.0); LYMPHOCYTES # 0.7 10^3/ul (0.8-2.9); MEAN CORPUSCULAR HEMOGLOBIN 28.7 pg (29.0-33.0); MEAN CORPUSCULAR HGB CONC 31.8 g/dl (32.0-37.0); MEAN CORPUSCULAR VOLUME 90.1 fl (82.0-101.0); MONOCYTE # 0.7 10^3/ul (0.3-0.9); MONOCYTES % 6.2 % (0.0-11.0); NEUTROPHILS % 84.7 % (39.0-77.0); PLATELET COUNT 168 10^3/UL (140-415); RED BLOOD COUNT 3.24 10^6/ul (4.20-5.40); RED CELL DISTRIBUTION WIDTH 18.1 % (11.5-14.5)
[2017-12-06 06:21] LABS: URIC ACID 7.4 mg/dl (3.1-7.9)
[2017-12-06 06:21] LABS: CREATINE KINASE 33 IU/L (23-200)
[2017-12-06 06:33] LABS: ANION GAP 11 (8-16); BLOOD UREA NITROGEN 45 mg/dl (7-20); CALCIUM 8.1 mg/dl (8.4-10.2); CARBON DIOXIDE 28 mmol/L (21-31); CHLORIDE 110 mmol/L (97-110); CREATININE 2.44 mg/dl (0.44-1.00); GLUCOSE 181 mg/dl (70-220); POTASSIUM 3.5 mmol/L (3.5-5.1); SODIUM 145 mmol/L (135-144)
[2017-12-06] MEDS: ASPIRIN (EC) 81 MG TAB PO (08:04)
[2017-12-06] MEDS: ISOSORBIDE DINITRATE 20 MG TAB PO ×3 (08:05→21:00)
[2017-12-06] MEDS: LEVETIRACETAM 1000 MG (PMX) 100 ML IVPB ×2 (08:06→20:31)
[2017-12-06] MEDS: FUROSEMIDE 20 MG INJ IV ×2 (08:10→17:37)
[2017-12-06] MEDS: FAMOTIDINE 20 MG INJ IV (08:10)
[2017-12-06] MEDS: HEPARIN 5,000 UNIT/0.5 ML VIAL SC ×2 (08:21→20:40)
[2017-12-06 13:37] LABS: AADO2 Arterial 132.3 mmHg (7.0-24.0); Allen Test ACCEPTAB; Arterial Base Excess 3.3 mmol/L (-3.0-3); Arterial COHb 0.3 % (0.0-3.0); Arterial Fraction of Oxyhgb 96.3 % (93.0-99.0); Arterial HCO3 28.7 mmol/L (22.0-26.0); Arterial MetHb 0.4 % (0.0-1.5); Arterial pCO2 47.6 mmhg (35-45); MODE VENT - CPAP; Site Right Radial
[2017-12-06] MEDS: ATORVASTATIN 10 MG TAB PO (21:00)
[2017-12-07] MEDS: INSULIN ASPART [NOVOLOG] 3 ML PEN SC ×5 (01:00→20:34)
[2017-12-07] MEDS: ACCU-CHEK XX (02:00)
[2017-12-07] MEDS: FUROSEMIDE 20 MG INJ IV ×2 (05:19→17:32)
[2017-12-07 05:52] LABS: ADD MAN DIFF? NO
[2017-12-07 06:01] LABS: BASOPHILS % 0.5 % (0.0-2.0); EOSINOPHILS # 0.2 10^3/ul (0.0-0.5); EOSINOPHILS % 2.8 % (0.0-7.0); HEMATOCRIT 30.8 % (37.0-47.0); HEMOGLOBIN 9.3 g/dl (12.0-16.0); LYMPHOCYTES # 0.9 10^3/ul (0.8-2.9); LYMPHOCYTES % 11.8 % (15.0-51.0); MEAN CORPUSCULAR HEMOGLOBIN 28.1 pg (29.0-33.0); MEAN CORPUSCULAR HGB CONC 30.2 g/dl (32.0-37.0); MEAN CORPUSCULAR VOLUME 93.1 fl (82.0-101.0); MEAN PLATELET VOLUME 12.8 fl (7.4-10.4); MONOCYTE # 0.6 10^3/ul (0.3-0.9); MONOCYTES % 7.8 % (0.0-11.0); NEUTROPHIL # 5.9 10^3/ul (1.6-7.5); NEUTROPHILS % 76.7 % (39.0-77.0); PLATELET COUNT 176 10^3/UL (140-415); RED BLOOD COUNT 3.31 10^6/ul (4.20-5.40); RED CELL DISTRIBUTION WIDTH 17.7 % (11.5-14.5)
[2017-12-07 06:01] LABS: WHITE BLOOD COUNT 7.7 10^3/ul (4.8-10.8)
[2017-12-07 06:24] LABS: ANION GAP 12 (8-16); BLOOD UREA NITROGEN 43 mg/dl (7-20); CALCIUM 8.3 mg/dl (8.4-10.2); CARBON DIOXIDE 29 mmol/L (21-31); CHLORIDE 110 mmol/L (97-110); CREATININE 2.36 mg/dl (0.44-1.00); GLUCOSE 120 mg/dl (70-220); POTASSIUM 3.6 mmol/L (3.5-5.1); SODIUM 147 mmol/L (135-144)
[2017-12-07] MEDS: FAMOTIDINE 20 MG INJ IV (10:05)
[2017-12-07] MEDS: LEVETIRACETAM 1000 MG (PMX) 100 ML IVPB ×2 (10:05→20:24)
[2017-12-07] MEDS: ASPIRIN (EC) 81 MG TAB PO (10:09)
[2017-12-07] MEDS: ISOSORBIDE DINITRATE 20 MG TAB PO ×3 (10:10→20:26)
[2017-12-07] MEDS: HEPARIN 5,000 UNIT/0.5 ML VIAL SC ×2 (10:16→20:34)
[2017-12-07] MEDS: ATORVASTATIN 10 MG TAB PO (20:25)
[2017-12-07] MEDS: ISOSORBIDE DINITRATE 10 MG TAB PO (21:00)
[2017-12-08] MEDS: ACCU-CHEK XX (02:00)
[2017-12-08] MEDS: FUROSEMIDE 20 MG INJ IV ×2 (05:13→19:06)
[2017-12-08 06:57] LABS: ANION GAP 15 (8-16); BLOOD UREA NITROGEN 46 mg/dl (7-20); CALCIUM 8.9 mg/dl (8.4-10.2); CARBON DIOXIDE 30 mmol/L (21-31); CHLORIDE 104 mmol/L (97-110); CREATININE 2.28 mg/dl (0.44-1.00); GLUCOSE 135 mg/dl (70-220); POTASSIUM 3.7 mmol/L (3.5-5.1); SODIUM 145 mmol/L (135-144)
[2017-12-08] MEDS: ASPIRIN (EC) 81 MG TAB PO (08:03)
[2017-12-08] MEDS: FAMOTIDINE 20 MG INJ IV (08:03)
[2017-12-08] MEDS: ISOSORBIDE DINITRATE 10 MG TAB PO ×2 (08:09→10:52)
[2017-12-08] MEDS: HEPARIN 5,000 UNIT/0.5 ML VIAL SC (08:22)
[2017-12-08] MEDS: INSULIN ASPART [NOVOLOG] 3 ML PEN SC ×3 (08:23→17:55)
[2017-12-08] MEDS: LEVETIRACETAM 500 MG TAB PO (08:27)
[2017-12-08] MEDS: ISOSORBIDE DINITRATE 20 MG TAB PO ×2 (10:52→13:30)
== END 2017-12-08 21:28 | disposition home health service (06) | DRG 637 ==
LOC: TEL 12-07 15:34 → E/R 16:42 → ICU 21:06
PROVIDERS: Internal Medicine
PROC: 5A1945Z Respiratory Ventilation, 24-96 Consecutive Hours (ICD-10-PCS; principal; 2017-12-02)
PROC: 0BH17EZ Insertion of Endotracheal Airway into Trachea, Via Natural or Artificial Opening (ICD-10-PCS; 2017-12-02)
DX: E11.649 Type 2 diabetes mellitus with hypoglycemia without coma (principal); G93.41 Metabolic encephalopathy; J69.0 Pneumonitis due to inhalation of food and vomit; J96.01 Acute respiratory failure with hypoxia; I13.0 Hypertensive heart and chronic kidney disease with heart failure and stage 1 through stage 4 chronic kidney disease, or unspecified chronic kidney disease; I42.9 Cardiomyopathy, unspecified; N17.0 Acute kidney failure with tubular necrosis; R56.9 Unspecified convulsions; I50.9 Heart failure, unspecified; E11.22 Type 2 diabetes mellitus with diabetic chronic kidney disease; E78.5 Hyperlipidemia, unspecified; E11.21 Type 2 diabetes mellitus with diabetic nephropathy; N18.3 Chronic kidney disease, stage 3 (moderate); R40.2432 Glasgow coma scale score 3-8, at arrival to emergency department; Z86.73 Personal history of transient ischemic attack (TIA), and cerebral infarction without residual deficits; Z95.810 Presence of automatic (implantable) cardiac defibrillator; Z79.82 Long term (current) use of aspirin; Z79.4 Long term (current) use of insulin
CPT/HCPCS: 31500; 36415; 36600; 70450; 70496; 70498; 71045; 74018; 76775; 80048; 80053; 80061; 80307; 81003; 82550; 82570; 82803; 82962; 83036; 83605; 83735; 84100; 84300; 84439; 84443; 84484; 84560; 85025; 85610; 85730; 87040; 87081; 87086; 89190; 92610; 93005; 93880; 94002; 94003; 94770; 95819; 96374; 96375; 96376; 97163; 99291-25

== ENCOUNTER 2018-01-06 21:06 | Emergency (ER) | payer MEDICARE, OTHER ==
[2018-01-06] MEDS: DEXTROSE 50% 50 ML SYRINGE IV ×2 (21:32→23:19)
[2018-01-06 21:56] LABS: ADD MAN DIFF? NO; BASOPHIL # 0.1 10^3/ul (0.0-0.1); BASOPHILS % 0.7 % (0.0-2.0); EOSINOPHILS # 0.2 10^3/ul (0.0-0.5); EOSINOPHILS % 2.7 % (0.0-7.0); HEMATOCRIT 37.6 % (37.0-47.0); HEMOGLOBIN 11.7 g/dl (12.0-16.0); LYMPHOCYTES # 1.4 10^3/ul (0.8-2.9); LYMPHOCYTES % 18.3 % (15.0-51.0); MEAN CORPUSCULAR HEMOGLOBIN 27.6 pg (29.0-33.0); MEAN CORPUSCULAR HGB CONC 31.1 g/dl (32.0-37.0); MEAN CORPUSCULAR VOLUME 88.7 fl (82.0-101.0); MEAN PLATELET VOLUME 12.6 fl (7.4-10.4); MONOCYTE # 0.6 10^3/ul (0.3-0.9); MONOCYTES % 7.3 % (0.0-11.0); NEUTROPHIL # 5.3 10^3/ul (1.6-7.5); NEUTROPHILS % 70.6 % (39.0-77.0); PLATELET COUNT 203 10^3/UL (140-415); RED BLOOD COUNT 4.24 10^6/ul (4.20-5.40); RED CELL DISTRIBUTION WIDTH 15.3 % (11.5-14.5)
[2018-01-06 21:56] LABS: WHITE BLOOD COUNT 7.5 10^3/ul (4.8-10.8)
[2018-01-06 22:15] LABS: ALANINE AMINOTRANSFERASE 15 IU/L (13-69); ALBUMIN 3.8 g/dl (3.3-4.9); ALBUMIN/GLOBULIN RATIO 1.02; ALKALINE PHOSPHATASE 84 IU/L (42-121); ANION GAP 12 (8-16); ASPARTATE AMINO TRANSFERASE 19 IU/L (15-46); BILIRUBIN,INDIRECT 0.5 mg/dl (0-1.1); BILIRUBIN,TOTAL 0.5 mg/dl (0.2-1.3); BLOOD UREA NITROGEN 37 mg/dl (7-20); CALCIUM 9.3 mg/dl (8.4-10.2); CARBON DIOXIDE 30 mmol/L (21-31); CHLORIDE 102 mmol/L (97-110); CREATININE 1.53 mg/dl (0.44-1.00); LIPASE 98 U/L (23-300); POTASSIUM 3.9 mmol/L (3.5-5.1); SODIUM 140 mmol/L (135-144); TOTAL PROTEIN 7.5 g/dl (6.1-8.1)
[2018-01-06 22:17] LABS: INR 0.97
[2018-01-06 22:19] LABS: GLUCOSE 36 mg/dl (70-220)
[2018-01-06 22:25] LABS: TROPONIN-I 0.012 ng/ml (0.000-0.120)
[2018-01-06] MEDS: DEXTROSE 5%-0.9% NACL 1,000 ML IV (23:37)
[2018-01-07] MEDS: CEFEPIME 2GM/50 ML (PMX) 50 ML IVPB (00:10)
[2018-01-07 00:19] LABS: ADD MAN DIFF? NO
[2018-01-07 00:20] LABS: WHITE BLOOD COUNT 15.4 10^3/ul (4.8-10.8)
[2018-01-07 00:20] LABS: BASOPHIL # 0.1 10^3/ul (0.0-0.1); BASOPHILS % 0.5 % (0.0-2.0); EOSINOPHILS # 0.1 10^3/ul (0.0-0.5); EOSINOPHILS % 0.5 % (0.0-7.0); HEMATOCRIT 36.1 % (37.0-47.0); HEMOGLOBIN 11.3 g/dl (12.0-16.0); LYMPHOCYTES # 0.9 10^3/ul (0.8-2.9); LYMPHOCYTES % 5.7 % (15.0-51.0); MEAN CORPUSCULAR HEMOGLOBIN 28.1 pg (29.0-33.0); MEAN CORPUSCULAR HGB CONC 31.3 g/dl (32.0-37.0); MEAN CORPUSCULAR VOLUME 89.8 fl (82.0-101.0); MEAN PLATELET VOLUME 12.5 fl (7.4-10.4); MONOCYTE # 0.8 10^3/ul (0.3-0.9); MONOCYTES % 5.4 % (0.0-11.0); NEUTROPHIL # 13.5 10^3/ul (1.6-7.5); NEUTROPHILS % 87.3 % (39.0-77.0); PLATELET COUNT 188 10^3/UL (140-415); RED BLOOD COUNT 4.02 10^6/ul (4.20-5.40); RED CELL DISTRIBUTION WIDTH 15.2 % (11.5-14.5)
[2018-01-07] MEDS: VANCOMYCIN 1 GM (PMX) 250 ML IVPB (00:35)
[2018-01-07 00:39] LABS: ANION GAP 10 (8-16); BLOOD UREA NITROGEN 39 mg/dl (7-20); CALCIUM 9.1 mg/dl (8.4-10.2); CARBON DIOXIDE 30 mmol/L (21-31); CHLORIDE 101 mmol/L (97-110); CREATININE 1.31 mg/dl (0.44-1.00); GLUCOSE 97 mg/dl (70-220); SODIUM 137 mmol/L (135-144)
[2018-01-07 00:41] LABS: LACTIC ACID 1.6 mmol/L (0.5-2.0)
[2018-01-07 01:12] LABS: URINE BLOOD (Dip) POC Negative (NEGATIVE); URINE GLUCOSE (Dip) POC Negative (NEGATIVE); URINE KETONES (Dip) POC Negative (NEGATIVE); URINE LEUKOCYTE EST (Dip) POC Negative (NEGATIVE); URINE NITRITE (Dip) POC Negative (NEGATIVE); URINE TOTAL PROTEIN POC 1+ (NEGATIVE)
[2018-01-07 01:12] LABS: URINE PH (Dip) POC 5.5 (5.0-8.5)
[2018-01-07 01:29] LABS: ADD UMIC YES; UR ASCORBIC ACID NEGATIVE (NEGATIVE); UR BILIRUBIN (Dip) NEGATIVE (NEGATIVE); UR BLOOD (Dip) NEGATIVE (NEGATIVE); UR CLARITY CLEAR (CLEAR); UR COLOR YELLOW (YELLOW); UR GLUCOSE (Dip) 1+ mg/dL (NEGATIVE); UR KETONES (Dip) NEGATIVE (NEGATIVE); UR LEUKOCYTE ESTERASE (Dip) NEGATIVE Leu/ul (NEGATIVE); UR NITRITE (Dip) NEGATIVE (NEGATIVE); UR RBC 1 /HPF (0-5); UR SQUAMOUS EPITHELIAL CELL FEW /HPF (FEW); UR TOTAL PROTEIN (Dip) 1+ mg/dl (NEGATIVE); UR UROBILINOGEN (Dip) NEGATIVE (NEGATIVE); UR WBC 0 /HPF (0-5)
[2018-01-07] MEDS: DEXTROSE 50% 50 ML SYRINGE IV (02:23)
== END 2018-01-07 03:24 | disposition short-term general hospital (02) ==
LOC: E/R 21:06
DX: E11.649 Type 2 diabetes mellitus with hypoglycemia without coma (principal); I12.9 Hypertensive chronic kidney disease with stage 1 through stage 4 chronic kidney disease, or unspecified chronic kidney disease; N18.3 Chronic kidney disease, stage 3 (moderate); E11.22 Type 2 diabetes mellitus with diabetic chronic kidney disease; I50.9 Heart failure, unspecified; E66.9 Obesity, unspecified; Z68.33 Body mass index [BMI] 33.0-33.9, adult; Z79.4 Long term (current) use of insulin; Z79.82 Long term (current) use of aspirin
CPT/HCPCS: 36415; 71045; 80048; 80053; 81001; 81003; 82962; 83605; 83690; 84484; 85025; 85610; 87040; 93005; 96365; 96375; 96376; 99285-25

== ENCOUNTER 2018-05-23 16:31 | Emergency (ER) | payer MEDICARE, OTHER ==
[2018-05-23 17:48] LABS: ADD MAN DIFF? NO
[2018-05-23 17:52] LABS: ABNORMAL IP MESSAGE 1; BASOPHIL # 0.1 10^3/ul (0.0-0.1); BASOPHILS % 0.7 % (0.0-2.0); EOSINOPHILS # 0.1 10^3/ul (0.0-0.5); HEMATOCRIT 34.2 % (37.0-47.0); LYMPHOCYTES # 0.9 10^3/ul (0.8-2.9); LYMPHOCYTES % 13.1 % (15.0-51.0); MEAN CORPUSCULAR HEMOGLOBIN 26.2 pg (29.0-33.0); MEAN CORPUSCULAR HGB CONC 29.2 g/dl (32.0-37.0); MEAN CORPUSCULAR VOLUME 89.5 fl (82.0-101.0); MEAN PLATELET VOLUME 13.3 fl (7.4-10.4); MONOCYTE # 0.6 10^3/ul (0.3-0.9); MONOCYTES % 8.6 % (0.0-11.0); NEUTROPHIL # 5.4 10^3/ul (1.6-7.5); NEUTROPHILS % 76.3 % (39.0-77.0); PLATELET COUNT 214 10^3/UL (140-415); RED BLOOD COUNT 3.82 10^6/ul (4.20-5.40); RED CELL DISTRIBUTION WIDTH 16.5 % (11.5-14.5)
[2018-05-23 17:52] LABS: WHITE BLOOD COUNT 7.1 10^3/ul (4.8-10.8)
[2018-05-23 18:06] LABS: INR 1.16; PT RATIO 1.2
[2018-05-23 18:07] LABS: PARTIAL THROMBOPLASTIN TIME 28.6 Sec (23.0-35.0)
[2018-05-23 18:25] LABS: URINE BLOOD (Dip) POC 1+ (NEGATIVE); URINE GLUCOSE (Dip) POC Negative (NEGATIVE); URINE KETONES (Dip) POC Negative (NEGATIVE); URINE LEUKOCYTE EST (Dip) POC Negative (NEGATIVE); URINE NITRITE (Dip) POC Negative (NEGATIVE); URINE TOTAL PROTEIN POC 2+ (NEGATIVE)
[2018-05-23 18:25] LABS: URINE PH (Dip) POC 5.5 (5.0-8.5)
[2018-05-23 19:50] LABS: ALANINE AMINOTRANSFERASE 14 IU/L (13-69); ALBUMIN 3.5 g/dl (3.3-4.9); ALBUMIN/GLOBULIN RATIO 1.02; ALKALINE PHOSPHATASE 101 IU/L (42-121); ANION GAP 5 (5-13); ASPARTATE AMINO TRANSFERASE 23 IU/L (15-46); BILIRUBIN,INDIRECT 0.8 mg/dl (0-1.1); BILIRUBIN,TOTAL 0.8 mg/dl (0.2-1.3); BLOOD UREA NITROGEN 57 mg/dl (7-20); CALCIUM 8.7 mg/dl (8.4-10.2); CARBON DIOXIDE 30 mmol/L (21-31); CHLORIDE 108 mmol/L (97-110); CREATININE 1.75 mg/dl (0.44-1.00); GLUCOSE 143 mg/dl (70-220); POTASSIUM 5.9 mmol/L (3.5-5.1); SODIUM 143 mmol/L (135-144); TOTAL PROTEIN 6.9 g/dl (6.1-8.1)
[2018-05-23 19:59] LABS: TROPONIN-I 0.039 ng/ml (0.000-0.120)
[2018-05-23] MEDS: FUROSEMIDE 40 MG INJ IV ×2 (20:11→20:36)
[2018-05-23 20:15] LABS: B-TYPE NATRIURETIC PEPTIDE 61100 PG/ML (0-450)
[2018-05-23] MEDS ORDERED: ALBUTEROL 0.5% (NEB) 2.5 MG/0.5 ML AMP (20:19)
[2018-05-23] MEDS ORDERED: DEXTROSE 50% 50 ML SYRINGE IV (20:30)
[2018-05-23] MEDS: INSULIN REGULAR, HUMAN 100 UNIT/1 ML 3ML VIAL IVP (20:35)
[2018-05-23] MEDS: ALBUTEROL 0.5% (NEB) 2.5 MG/0.5 ML AMP INH (20:39)
[2018-05-23] MEDS: DEXTROSE 50% 50 ML SYRINGE IV (20:41)
[2018-05-23] MEDS: NA POLYST SULFON 15 GM/60 ML BTL PO (21:34)
== END 2018-05-23 21:40 | disposition short-term general hospital (02) ==
LOC: E/R 16:31
DX: I13.0 Hypertensive heart and chronic kidney disease with heart failure and stage 1 through stage 4 chronic kidney disease, or unspecified chronic kidney disease (principal); I50.9 Heart failure, unspecified; N18.9 Chronic kidney disease, unspecified; I25.10 Atherosclerotic heart disease of native coronary artery without angina pectoris; E11.22 Type 2 diabetes mellitus with diabetic chronic kidney disease; E66.9 Obesity, unspecified; E87.5 Hyperkalemia; D64.9 Anemia, unspecified; R06.02 Shortness of breath; Z79.4 Long term (current) use of insulin; Z68.33 Body mass index [BMI] 33.0-33.9, adult
CPT/HCPCS: 36415; 71045; 80053; 81003; 82962; 83880; 84484; 85025; 85610; 85730; 93005; 93970; 94664; 96374; 96375; 99291-25